=== PATIENT | male | born 1980 | race African-American/Black ===

== ENCOUNTER 2018-08-19 22:17 | Inpatient (IN) | payer MEDICAID ==
[~2018-08-19] VITALS: Ht 175.3 cm; Wt 192.8 kg
--- NOTE | 2018-08-19 22:20 | NUR ---
Dr. Rios at bedside for MSE.
[2018-08-19] MEDS ORDERED: IV NORMAL SALINE 1000 ML BAG IV ONE (22:30)
[2018-08-19] MEDS ORDERED: ASPIRIN 325 MG TABLET PO ONE (22:30)
[2018-08-19] MEDS ORDERED: NITROGLYCERIN 0.4 MG/TAB BOTTLE SL ONE ×2 (22:30→22:43)
--- NOTE | 2018-08-19 22:40 | NUR ---
Xray at bedside.
[2018-08-19] MEDS ORDERED: ASPIRIN 325 MG TABLET ONE (22:42)
--- NOTE | 2018-08-19 22:50 | NUR ---
Pt states relief from chestpain after 1st nitro dose.
[2018-08-19 22:53] LABS: BASOPHILS % (AUTO) 0.3 % (0.0-2.0); EOSINOPHILS % (AUTO) 0.1 % (0.0-7.0); HEMATOCRIT 46.1 % (36.7-47.1); HEMOGLOBIN 14.1 g/dL (12.5-16.3); LYMPHOCYTES # (AUTO) 1.5 K/uL (20.0-40.0); LYMPHOCYTES % (AUTO) 8.6 % (20.5-51.5); MEAN CORPUSCULAR HEMOGLOBIN 29.9 uug (23.8-33.4); MEAN CORPUSCULAR HGB CONC 31 g/dL (32.5-36.3); MEAN CORPUSCULAR VOLUME 97.6 fL (73.0-96.2); MONOCYTES # (AUTO) 1.1 K/uL (2.0-10.0); PLATELET COUNT (AUTO) 391 K/uL (152-348); RED BLOOD CELL COUNT(AUTO) 4.73 MIL/uL (4.06-5.63); WHITE BLOOD COUNT (AUTO) 17.6 K/uL (3.6-10.2)
[2018-08-19 23:11] LABS: BILIRUBIN,DIRECT 0.3 mg/dL (0.0-0.2); BILIRUBIN,TOTAL 0.7 mg/dL (0.2-1.0); CREATININE 1.8 mg/dL (0.6-1.3); POTASSIUM 5.5 mmol/L (3.5-5.1); TOTAL PROTEIN, SERUM 10.6 g/dL (6.4-8.2)
[2018-08-19] MEDS ORDERED: INSULIN REGULAR, HUMAN 300 UNIT/3 ML VIAL ONE ×2 (23:26→23:28)
[2018-08-19] MEDS ORDERED: INSULIN REGULAR, HUMAN 300 UNIT/3 ML VIAL IV ONE (23:30)
[2018-08-19] MEDS ORDERED: INSULIN REGULAR, HUMAN 100 UNITS in IV NORMAL SALINE 100 ML IV ONE ×2 (23:30)
[2018-08-20] VITALS (23 sets, daily range): BP systolic 103–165; BP diastolic 49–102
--- NOTE | 2018-08-20 00:12 | NUR ---
Dr. Rios on panel call with Jaguar Zimmerman NP. Pt accepted for admission to CCU, diagnosis hyperglycemia.
[2018-08-20] MEDS ORDERED: IV NORMAL SALINE 1000 ML BAG IV ONE (00:15)
--- NOTE | 2018-08-20 00:23 | NUR ---
Report given to [facility] CCU.
[2018-08-20] MEDS ORDERED: ONDANSETRON 4 MG/2 ML VIAL IV PRN (00:45)
[2018-08-20] MEDS ORDERED: Z GUARD REMEDY PASTE 57 GM TUBE TOP PRN (00:45)
[2018-08-20] MEDS ORDERED: ACETAMINOPHEN 325 MG TABLET PO PRN (00:45)
[2018-08-20] MEDS ORDERED: HYDROCODONE/APAP 5-325MG TABLET PO PRN (00:45)
[2018-08-20] MEDS ORDERED: MORPHINE SULFATE 2 MG/1 ML DISP.SYRIN IV PRN (00:45)
--- NOTE | 2018-08-20 01:00 | NUR ---
IV insulin drip to continue infusing in CCU floor, endorsed to RN.
--- NOTE | 2018-08-20 01:20 | NUR ---
Pt received from Bonifacio GAMEZ in ER, pt is a/o x4, denies any CP or discomfort, c/o being very fatiqued and dehydrate. Accu check reads >600 at this time, Valerio HERNANDEZ made aware, state to continue w/ current rate and follow protocal. Insulin gtt protocal faxed to Pharmacy
--- NOTE | 2018-08-20 01:30 | NUR ---
Pt on Carb consistant diet, c/o being very thirsty, ice water given, pt voiding lg amts of cl yellow urine
[2018-08-20] MEDS: ENOXAPARIN SODIUM 40 MG/0.4 ML DISP.SYRIN SQ SCH ×2 (01:50→20:01)
[2018-08-20] MEDS: INSULIN REGULAR, HUMAN 100 UNIT in IV NORMAL SALINE 99 ML IV PRN ×10 (02:09→16:13)
[2018-08-20] MEDS ORDERED: BLOOD SUGAR DIAGNOSTIC 1 EACH STRIP VI SCH (04:00)
--- NOTE | 2018-08-20 04:00 | NUR ---
Continue on accu check q1hr w/ insulin gtt, following algorithym 1. Pt relaxing, taking fluids po, voiding per urinal w/o diff.
[2018-08-20] MEDS: IV NS 1000 ML 1,000 ML IV PRN ×3 (05:35→18:36)
--- NOTE | 2018-08-20 05:37 | NUR ---
NS 1000ml hung at this time due to ER sending up 3000ml NS to bolus.
[2018-08-20 05:39] LABS: *BILIRUBIN,URIN NEGATIVE (NEGATIVE); *CLARITY,URINE CLEAR (CLEAR); *KETONES,URINE 4+ (NEGATIVE); *UROBILINOGEN,URINE 0.2 E.U./dl (NORMAL); LEUKOCYTE ESTERASE ,URINE NEGATIVE (NEGATIVE); NITRITE, URINE NEGATIVE (NEGATIVE); UGLUCOSE 2+ (NEGATIVE)
[2018-08-20 05:40] LABS: *BLOOD, URINE TRACE (NEGATIVE); *COLOR,URINE STRAW (YELLOW)
[2018-08-20] MEDS ORDERED: INSULIN REGULAR, HUMAN 300 UNIT/3 ML VIAL ONE (05:40)
[2018-08-20 05:57] LABS: BACTERIA,URINE NONE SEEN /HPF (NONE SEEN); COARSE GRANULAR CASTS,URINE 0-3 /LPF; RED BLOOD CELL CASTS,URINE 0-3 /LPF (NONE SEEN); SQUAMOUS EPITHELIAL CELL,UR FEW /HPF (NONE SEEN); WBC,URINE 0-3 /HPF (0-3)
[2018-08-20 06:42] LABS: BASOPHILS # (AUTO) 0.1 K/uL (0.0-8.0); BASOPHILS % (AUTO) 0.6 % (0.0-2.0); EOSINOPHILS % (AUTO) 0.1 % (0.0-7.0); HEMATOCRIT 40.2 % (36.7-47.1); HEMOGLOBIN 13.2 g/dL (12.5-16.3); LYMPHOCYTES # (AUTO) 2.4 K/uL (20.0-40.0); LYMPHOCYTES % (AUTO) 13.7 % (20.5-51.5); MEAN CORPUSCULAR HEMOGLOBIN 30.2 uug (23.8-33.4); MEAN CORPUSCULAR HGB CONC 33 g/dL (32.5-36.3); MONOCYTES # (AUTO) 1.7 K/uL (2.0-10.0); MONOCYTES % (AUTO) 9.7 % (0.0-11.0); NEUTROPHILS # (AUTO) 13.3 K/uL (1.8-8.9); NEUTROPHILS % (AUTO) 75.9 % (38.5-71.5); PLATELET COUNT (AUTO) 348 K/uL (152-348); RED BLOOD CELL COUNT(AUTO) 4.37 MIL/uL (4.06-5.63); WHITE BLOOD COUNT (AUTO) 17.5 K/uL (3.6-10.2)
[2018-08-20 06:53] LABS: CREATININE 1.4 mg/dL (0.6-1.3); MAGNESIUM 2.7 mg/dL (1.8-2.4); PHOSPHOROUS 2.7 mg/dL (2.5-4.9); POTASSIUM 4.3 mmol/L (3.5-5.1)
[2018-08-20] MEDS ORDERED: MORPHINE SULFATE 4 MG/1 ML DISP.SYRIN IV PRN (07:30)
--- NOTE | 2018-08-20 07:30 | NUR ---
Received pt. in bed resting, AAOX4. Vitals signs stable no complains of pain. Currently on insulin drip running at 6 units/hr. On room air saturation within desire limits.
[2018-08-20 07:38] LABS: THYROID STIMULATING HORMONE 0.975 mIU/mL (0.358-3.740)
[2018-08-20] MEDS: PANTOPRAZOLE SODIUM 40 MG TABLET.DR PO SCH (07:39)
[2018-08-20] MEDS: BLOOD SUGAR DIAGNOSTIC 1 EACH STRIP VI SCH ×15 (08:04→23:49)
--- NOTE | 2018-08-20 10:20 | NUR ---
Attending physician Dr. Kaylee Shaw in the unit to examine patient; full report given orders received and carried. See order hx.
[2018-08-20] MEDS ORDERED: hydrALAZINE HCL 25 MG TABLET PO PRN (10:30)
[2018-08-20] MEDS: BENZOCAINE/MENTH/CETYLPYRD LOZENGE MM PRN ×5 (10:49→21:51)
[2018-08-20 13:16] LABS: BILIRUBIN,DIRECT 0.2 mg/dL (0.0-0.2); BILIRUBIN,TOTAL 0.5 mg/dL (0.2-1.0); TOTAL PROTEIN, SERUM 9.5 g/dL (6.4-8.2)
--- NOTE | 2018-08-20 15:38 | NUR ---
Referred by RN for diabetic education. Discussed etiology of diabetes, management and care. Encouraged blood glucose monitoring after discharge. Printed materials also provided. Patient appeared to understand education and was receptive. Adherence after discharge anticipated however further dietary education indicated. Addendum: 08/20/18 at [address] Amended: Links added.
--- NOTE | 2018-08-20 19:00 | NUR ---
Received patient in bed. Patient is alert and oriented x4. patient is on an insulin drip with accu checks qhr. patient IV sites are intact and patent. Patient is able to verbalize needs and needs are being met. Will continue to monitor patient closely.
[2018-08-20] MEDS: SIMVASTATIN 20 MG TABLET PO SCH (20:00)
--- NOTE | 2018-08-20 20:00 | NUR ---
[id number]=[id number]. Patient AAO; remains on Insulin drip @ 5units/H. Insulin drip protocol discussed with Pharmacist John (Transition from IV Insulin to SC Insulin). Call placed to [facility]; Valeria Dumontwy women's apparel salesperson. Addendum: 08/20/18 at 2035 by BRENDA TAVERAS RN Amended: Links added.
--- NOTE | 2018-08-20 20:15 | NUR ---
[facility] [id number] and Insulin drip @ 5 units/H. Orders received. Pharmacist notified of new orders. Addendum: 08/20/18 at 2028 by BRENDA TAVERAS RN Amended: Links added. Addendum: 08/20/18 at 2035 by BRENDA TAVERAS RN Amended: Links added.
[2018-08-20] MEDS ORDERED: DEXTROSE 50% 50 ML DISP.SYRIN IV PRN (20:30)
[2018-08-20] MEDS: INSULIN REGULAR, HUMAN 300 UNIT/3 ML VIAL SQ PRN ×2 (20:49→23:52)
--- NOTE | 2018-08-20 23:12 | NUR ---
Spoke to sister, Dustin Parmar, and she stated she will like to be contacted by the physician to receive a update about her brother. She can be reached at [phone]. Will endorse to day shift nurse.
[2018-08-21] VITALS (16 sets, daily range): BP systolic 118–176; BP diastolic 59–94
[2018-08-21] MEDS: IV NS 1000 ML 1,000 ML IV PRN ×2 (01:01→07:53)
[2018-08-21] MEDS: BENZOCAINE/MENTH/CETYLPYRD LOZENGE MM PRN ×7 (01:31→23:57)
[2018-08-21] MEDS: BLOOD SUGAR DIAGNOSTIC 1 EACH STRIP VI SCH ×6 (04:07→19:26)
[2018-08-21] MEDS: INSULIN REGULAR, HUMAN 300 UNIT/3 ML VIAL SQ PRN ×4 (04:09→20:55)
[2018-08-21 05:11] LABS: CREATININE 1.1 mg/dL (0.6-1.3); MAGNESIUM 1.9 mg/dL (1.8-2.4); PHOSPHOROUS 2.3 mg/dL (2.5-4.9); POTASSIUM 3.9 mmol/L (3.5-5.1)
[2018-08-21 05:18] LABS: BASOPHILS # (AUTO) 0.1 K/uL (0.0-8.0); BASOPHILS % (AUTO) 1.5 % (0.0-2.0); EOSINOPHILS # (AUTO) 0.1 K/uL (0.0-0.7); HEMATOCRIT 37.4 % (36.7-47.1); HEMOGLOBIN 12.4 g/dL (12.5-16.3); LYMPHOCYTES # (AUTO) 2.5 K/uL (20.0-40.0); LYMPHOCYTES % (AUTO) 26.8 % (20.5-51.5); MEAN CORPUSCULAR HEMOGLOBIN 30.8 uug (23.8-33.4); MEAN CORPUSCULAR HGB CONC 33 g/dL (32.5-36.3); MEAN CORPUSCULAR VOLUME 93.2 fL (73.0-96.2); MONOCYTES # (AUTO) 0.8 K/uL (2.0-10.0); MONOCYTES % (AUTO) 8.7 % (0.0-11.0); NEUTROPHILS # (AUTO) 5.8 K/uL (1.8-8.9); PLATELET COUNT (AUTO) 275 K/uL (152-348); RED BLOOD CELL COUNT(AUTO) 4.01 MIL/uL (4.06-5.63); WHITE BLOOD COUNT (AUTO) 9.4 K/uL (3.6-10.2)
[2018-08-21] MEDS: PANTOPRAZOLE SODIUM 40 MG TABLET.DR PO SCH (06:00)
--- NOTE | 2018-08-21 06:30 | NUR ---
called [facility] for on-call physician about patient critical lab value - Blood glucose 400. Waiting for call back.
--- NOTE | 2018-08-21 06:34 | NUR ---
end of shift note: Patient is alert and oriented x4. IV lines are intact and patent. Patient able to verbalize needs and needs have been met. patient able to ambulate to restroom and was able to have a bowel movement. Patient had a elevated blood pressure at 02:40 of 176/69. Patient was given apresoline 25 mg PO. Blood pressure has decreased and return to baseline. patient complains of dry mouth, administration of Cepacol Q2hrs. patient was transitioned from insulin drip to subcutaneous injection with moderate sliding scale at 21:50. patient latest BS was 400, on-call physician has been called and still waiting for call back. Will continue to monitor closely and endorse plan of care to oncoming shift nurse.
--- NOTE | 2018-08-21 07:20 | NUR ---
received patient sleeping as reported blood sugar per lab report in the 400. pt. on Acu-check Q4h. and henna guerrero this morning. At this time a call to Dr. Page orders received and carried. Addendum: 08/21/18 at 0739 by ELVIS ANNE RN orders to give 30 units of lantus daily first dose now scheduled for 2099. and change SS to aggressive coverage, until seen by her.
[2018-08-21] MEDS ORDERED: INSULIN GLARGINE,HUM 300 UNITS/3 ML CARTRIDGE SQ SCH (07:30)
[2018-08-21] MEDS ORDERED: INSULIN REGULAR, HUMAN 300 UNITS/3 ML VIAL SQ PRN (07:30)
[2018-08-21] MEDS ORDERED: DEXTROSE 50% 50 ML DISP.SYRIN IV PRN ×2 (07:30)
[2018-08-21] MEDS ORDERED: INSULIN REGULAR, HUMAN 300 UNIT/3 ML VIAL SQ PRN (07:30)
[2018-08-21] MEDS ORDERED: INSULIN GLARGINE,HUM 300 UNITS/3 ML CARTRIDGE SQ ONE (07:45)
[2018-08-21] MEDS ORDERED: BLOOD SUGAR DIAGNOSTIC 1 EACH STRIP VI SCH (08:00)
--- NOTE | 2018-08-21 11:00 | NUR ---
Patient seen and examine by Dr. Conde [facility]
--- NOTE | 2018-08-21 11:20 | NUR ---
Telephone report given to charge Juan Sam. Patient will going to room 321. Patient AAOX4. No c/of pain. Peripheral IV lines patent.
--- NOTE | 2018-08-21 11:45 | NUR ---
A call to attending physician for glucose of 501 informed that pt. was covered with 20unit/per SS. no new orders received.
--- NOTE | 2018-08-21 12:27 | NUR ---
Spoke with attending physician and orders to dcd IVF upon transferring.
--- NOTE | 2018-08-21 12:55 | NUR ---
received patient from ccu with DX of Hyperglycemia, no SOB noted and no c/o pain at this time. iv on the left hand intact and patent. patient is ambulatory, patient is diabetic skin is intact alert and oriented x4 with no known allergies full code. will continue treatment plan.
[2018-08-21] MEDS ORDERED: NEUTRA PHOS PACKET PO ONE (16:00)
--- NOTE | 2018-08-21 16:58 | NUR ---
MADE AWARE OF CT=204 BY BEDSIDE RN. 20 UNITS OF HUMALOG GIVEN PER ORDERS. DR HADLEY MADE AWARE WITH ORDERS TO RE CHECK SUGAR HS AND INCREASE MORNING LANTUS DOSE TO 40 UNITS. BEDSIDE RN MADE AWARE
--- NOTE | 2018-08-21 18:46 | NUR ---
patient in bed with no SOB noted and no c/o pain at this time. Alert and oriented x4 , able to make needs known, IV on the left hand intact and patent. patient is ambulatory. will continue treatment plan.
[2018-08-21] MEDS: SIMVASTATIN 20 MG TABLET PO SCH (20:52)
[2018-08-21] MEDS: ENOXAPARIN SODIUM 40 MG/0.4 ML DISP.SYRIN SQ SCH (20:55)
--- NOTE | 2018-08-21 22:00 | NUR ---
Received report of patient BS trending high. Checked BS at 1925= 474. MD notified. Ordered stat random glucose. Received glucose critical lab value of 523 at 2025. MD notified per protocol. Administered 20 units per sliding scale. Patient currently awake, alert and oriented in bed. Asymptomatic. No s/s of acute distress. IV intact and patent. Call light within reach. All needs met. Will continue to monitor throughout shift.
[2018-08-22 03:28] VITALS: BP 162/96
--- NOTE | 2018-08-22 03:50 | NUR ---
Patient complaining of discomfort/pain in the mouth area of 10/10 as well as a sore throat. Cepacol PRN q2hr for sore throat administered x3 throughout the night. PRN Morphine administered due to pain level. Offered patient to gargle cup of salt water. Patient verbalizes discomfort/pain relief of 3/10. Will continue to monitor.
[2018-08-22] MEDS: BENZOCAINE/MENTH/CETYLPYRD LOZENGE MM PRN ×4 (03:57→17:24)
[2018-08-22 05:30] VITALS: BP 145/79
[2018-08-22] MEDS: PANTOPRAZOLE SODIUM 40 MG TABLET.DR PO SCH (06:18)
[2018-08-22] MEDS: BLOOD SUGAR DIAGNOSTIC 1 EACH STRIP VI SCH ×4 (06:47→21:22)
[2018-08-22 06:56] LABS: BASOPHILS % (AUTO) 0.8 % (0.0-2.0); EOSINOPHILS # (AUTO) 0.1 K/uL (0.0-0.7); EOSINOPHILS % (AUTO) 2.4 % (0.0-7.0); HEMATOCRIT 36.9 % (36.7-47.1); HEMOGLOBIN 12.3 g/dL (12.5-16.3); LYMPHOCYTES % (AUTO) 32.2 % (20.5-51.5); MEAN CORPUSCULAR HEMOGLOBIN 30.7 uug (23.8-33.4); MEAN CORPUSCULAR HGB CONC 33 g/dL (32.5-36.3); MEAN CORPUSCULAR VOLUME 91.8 fL (73.0-96.2); MONOCYTES # (AUTO) 0.8 K/uL (2.0-10.0); MONOCYTES % (AUTO) 12.8 % (0.0-11.0); NEUTROPHILS # (AUTO) 3.2 K/uL (1.8-8.9); NEUTROPHILS % (AUTO) 51.8 % (38.5-71.5); PLATELET COUNT (AUTO) 243 K/uL (152-348); RED BLOOD CELL COUNT(AUTO) 4.02 MIL/uL (4.06-5.63); WHITE BLOOD COUNT (AUTO) 6.2 K/uL (3.6-10.2)
--- NOTE | 2018-08-22 07:10 | NUR ---
RECEIVED PATIENT ON BED AWAKE, AAOX4 NO ACUTE DISTRESS NOTED. IV ACCESS ON LFA #20 INTACT AND PATENT. PATIENT IS HYPERGLYCEMIC BUT ASYMPTOMATIC. RECENT BLOOD SUGAR 379 WILL NEED INSULIN COVERAGE BEFORE BREAKFAST. MONITOR BLOOD SUGAR AND S/S OF HYPERGLYCEMIA CLOSELY. COMPLAINS OF "RAW AND SORE THROAT" MANAGED BY CEPACOL Q2HRS PRN. COMFORT MEASURES PROVIDED. WILL CONTINUE TO MONITOR CLOSELY.
[2018-08-22 07:12] LABS: MAGNESIUM 2.3 mg/dL (1.8-2.4)
--- NOTE | 2018-08-22 07:19 | NUR ---
Patient currently resting in bed. No change in status. VSS. No acute distress noted. All needs met. Continue plan of care. Endorsed
[2018-08-22] MEDS: INSULIN REGULAR, HUMAN 300 UNIT/3 ML VIAL SQ PRN ×4 (07:43→21:32)
--- NOTE | 2018-08-22 08:00 | NUR ---
RECHECKED BLOOD GLUCOSE LEVELS, 378, PATIENT IS STABLE .WILL CONTINUE TO MONITOR CLOSELY.
[2018-08-22] MEDS ORDERED: INSULIN GLARGINE,HUM 300 UNITS/3 ML CARTRIDGE SQ SCH ×2 (09:00)
--- NOTE | 2018-08-22 11:50 | NUR ---
PATIENT NOTED WITH BLOOD SUGAR OF 488, DR. HADLEY MADE AWARE, ADMINISTERED 20 UNITS OF REGULAR INSULIN. WILL CONTINUE TO MONITOR CLOSELY.
[2018-08-22 12:18] VITALS: BP 153/68
[2018-08-22] MEDS: LISINOPRIL 10 MG TABLET PO SCH (14:17)
[2018-08-22 16:13] VITALS: BP 139/88
--- NOTE | 2018-08-22 20:00 | NUR ---
PATIENT RECEIVED AWAKE AND ALERT IN BED. NO COMPLAINTS OF PAIN OR ACUTE DISTRESS VERBALIZED. VS FROM PREVIOUS SHIFT ARE WNL AND PATIENT IS STABLE. ALL SAFETY AND FALL PRECAUTION MEASURES ARE IN PLACE. BED IS IN LOWEST POSITION WITH BRAKE APPLIED. 2 SIDE RAILS ARE UP AND IN LOCKED POSITION. CALL LIGHT AND PERSONAL ITEMS ARE WITHIN REACH AT ALL TIMES. WILL CONTINUE TO MONITOR.
[2018-08-22 20:04] VITALS: BP 133/76
[2018-08-22] MEDS: ENOXAPARIN SODIUM 40 MG/0.4 ML DISP.SYRIN SQ SCH (21:09)
[2018-08-22] MEDS: SIMVASTATIN 20 MG TABLET PO SCH (21:09)
[2018-08-22] MEDS: TEMAZEPAM 15 MG CAPSULE PO PRN (21:30)
--- NOTE | 2018-08-23 05:22 | NUR ---
PATIENT SLEPT INTERMITTENTLY THROUGHOUT NIGHT WITHOUT ANY COMPLAINTS OF PAIN OR ACUTE DISTRESS. ALL PRESCRIBED MEDICATIONS PROVIDED ORDERED AND TOLERATED WELL. ALL NURSING NEEDS MET PROMPTLY. SAFETY AND FALL PRECAUTIONS REMAIN IN PLACE. BED IN LOWEST POSITION WITH BRAKE APPLIED. 2 SIDE RAILS UP AND IN LOCKED POSITION. CALL LIGHT AND PERSONAL ITEMS ARE WITHIN REACH AT ALL TIMES. WILL PROVIDE REPORT TO ONCOMING SHIFT.
[2018-08-23 05:47] VITALS: BP 119/59
[2018-08-23] MEDS: BENZOCAINE/MENTH/CETYLPYRD LOZENGE MM PRN (05:59)
[2018-08-23] MEDS: PANTOPRAZOLE SODIUM 40 MG TABLET.DR PO SCH (06:00)
[2018-08-23] MEDS: BLOOD SUGAR DIAGNOSTIC 1 EACH STRIP VI SCH ×5 (06:06→20:52)
[2018-08-23 06:50] LABS: CARBON DIOXIDE 27 mmol/L (21-32); CHLORIDE 101 mmol/L (98-107); CREATININE 0.7 mg/dL (0.6-1.3); MAGNESIUM 2.2 mg/dL (1.8-2.4); PHOSPHOROUS 4.1 mg/dL (2.5-4.9); POTASSIUM 4.1 mmol/L (3.5-5.1); UREA NITROGEN, BLOOD 12 mg/dL (7-18)
[2018-08-23 06:54] LABS: GLUCOSE 389 mg/dL (74-106)
--- NOTE | 2018-08-23 07:15 | NUR ---
PATIENT RECEIVED IN BED, AAOX4 NO ACUTE DISTRESS NOTED. IV ACCESS ON LEFT FOREARM #20 SALINE LOCKED INTACT AND PATENT. VITAL SIGNS STABLE BLOOD SUGAR THIS AM, 368, WILL BE COVERED WITH 20 UNITS OF REGULAR INSULIN. NO COMPLAINTS OF PAIN/DISCOMFORT AT THIS TIME. CALL LIGHT WITHIN REACH. WILL CONTINUE TO MONITOR CLOSELY.
[2018-08-23] MEDS: INSULIN REGULAR, HUMAN 300 UNIT/3 ML VIAL SQ PRN ×3 (07:35→17:24)
[2018-08-23 07:59] LABS: BASOPHILS % (AUTO) 0.7 % (0.0-2.0); EOSINOPHILS # (AUTO) 0.2 K/uL (0.0-0.7); EOSINOPHILS % (AUTO) 3.9 % (0.0-7.0); HEMATOCRIT 37.8 % (36.7-47.1); HEMOGLOBIN 12.5 g/dL (12.5-16.3); LYMPHOCYTES % (AUTO) 32.4 % (20.5-51.5); MEAN CORPUSCULAR HEMOGLOBIN 30.3 uug (23.8-33.4); MEAN CORPUSCULAR HGB CONC 33 g/dL (32.5-36.3); MEAN CORPUSCULAR VOLUME 91.9 fL (73.0-96.2); MONOCYTES # (AUTO) 0.8 K/uL (2.0-10.0); MONOCYTES % (AUTO) 12.4 % (0.0-11.0); NEUTROPHILS # (AUTO) 3.1 K/uL (1.8-8.9); NEUTROPHILS % (AUTO) 50.6 % (38.5-71.5); PLATELET COUNT (AUTO) 249 K/uL (152-348); RED BLOOD CELL COUNT(AUTO) 4.11 MIL/uL (4.06-5.63); WHITE BLOOD COUNT (AUTO) 6.1 K/uL (3.6-10.2)
[2018-08-23] MEDS: LISINOPRIL 10 MG TABLET PO SCH (08:15)
[2018-08-23] MEDS: INSULIN GLARGINE,HUM 300 UNITS/3 ML CARTRIDGE SQ SCH (09:15)
[2018-08-23 10:51] VITALS: BP 144/78
--- NOTE | 2018-08-23 11:53 | NUR ---
PATIENT NOTED WITH BLOOD SUGAR OF 464, ADMINISTERED 20 UNITS OF REGULAR INSULIN PER SLIDING SCALE AND NOTIFIED DR. LEONIE MITCHELL. NNO. WILL CONTINUE TO MONITOR CLOSELY.
[2018-08-23 15:20] VITALS: BP 133/78
--- NOTE | 2018-08-23 17:01 | NUR ---
Received consult for diabetic education. Seen by me in CCU for initial education. Discussed food and carbohydrate management at length. Printed materials also provided. 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 Adherence is expected with adequate medical support after discharge. Currently, he does not have a regular MD. Weight loss was also emphasized for good glucose control. Will remain available as needed for follow-up questions/education. Addendum: 08/23/18 at [address] Amended: Links added.
[2018-08-23 19:14] VITALS: BP 117/69
--- NOTE | 2018-08-23 20:00 | NUR ---
RECEIVED PATIENT AWAKE IN BED. A/O X4. DENIES PAIN OR DISCOMFORT. NO RESP. DISTRESS NOTED. VS WNL. H/L INTACT AND PATENT. CALL LIGHT IN REACH. ALL NEEDS ATTENDED. WILL CONTINUE TO MONITOR AND ASSESS.
--- NOTE | 2018-08-23 20:15 | NUR ---
PATIENTS BLOOD SUGAR CHECKED AND RECEIVED 421. CALLED OUT TO LAB FOR STAT DRAW. MICE RAISER NOTIFIED. WILL CONTINUE TO MONITOR AND ASSESS.
[2018-08-23] MEDS: SIMVASTATIN 20 MG TABLET PO SCH (20:39)
[2018-08-23] MEDS: ENOXAPARIN SODIUM 40 MG/0.4 ML DISP.SYRIN SQ SCH (20:49)
--- NOTE | 2018-08-23 20:55 | NUR ---
RECEIVED STAT GLUCOSE LAB DRAW 466. PATIENT COVERED WITH 10 UNITS OF INSULIN ORDERED.
--- NOTE | 2018-08-23 21:30 | NUR ---
RECHECKED PATIENTS BS AFTER PATIENT RECEIVING 10 UNITS. RECEIVED BS OF 432. CALLED OUT TO DAVID GONZALEZ FOR FURTHER ORDERS. WILL CONTINUE TO MONITOR AND ASSESS.
[2018-08-23] MEDS ORDERED: INSULIN GLARGINE,HUM 300 UNITS/3 ML CARTRIDGE SQ SCH (21:45)
--- NOTE | 2018-08-23 21:45 | NUR ---
PATIENT GIVEN LANTUS 20 UNITS SQ PER DAVID GONZALEZ. AND TO RECHECK BLOOD SUGAR IN AM. WILL CONTINUE TO MONITOR CLOSELY FOR S/S OF HYPOGLYCEMIA. ALL NEEDS ATTENDED.
[2018-08-24 04:36] VITALS: BP 150/88
[2018-08-24 05:30] LABS: BASOPHILS % (AUTO) 0.8 % (0.0-2.0); EOSINOPHILS # (AUTO) 0.2 K/uL (0.0-0.7); EOSINOPHILS % (AUTO) 3.9 % (0.0-7.0); HEMATOCRIT 38.8 % (36.7-47.1); LYMPHOCYTES # (AUTO) 1.6 K/uL (20.0-40.0); LYMPHOCYTES % (AUTO) 28.9 % (20.5-51.5); MEAN CORPUSCULAR HEMOGLOBIN 30.9 uug (23.8-33.4); MEAN CORPUSCULAR HGB CONC 34 g/dL (32.5-36.3); MEAN CORPUSCULAR VOLUME 91.8 fL (73.0-96.2); MONOCYTES # (AUTO) 0.6 K/uL (2.0-10.0); MONOCYTES % (AUTO) 10.3 % (0.0-11.0); NEUTROPHILS # (AUTO) 3.2 K/uL (1.8-8.9); NEUTROPHILS % (AUTO) 56.1 % (38.5-71.5); PLATELET COUNT (AUTO) 241 K/uL (152-348); RED BLOOD CELL COUNT(AUTO) 4.22 MIL/uL (4.06-5.63); WHITE BLOOD COUNT (AUTO) 5.7 K/uL (3.6-10.2)
--- NOTE | 2018-08-24 05:39 | NUR ---
PATIENT AWAKE IN BED. SLEPT AT INTERVALS. DENIES PAIN OR DISCOMFORT. NO RESP. DISTRESS NOTED. VSS. CALL LIGHT IN REACH. ALL NEEDS ATTENDED. WILL CONTINUE TO MONITOR AND ASSESS.
[2018-08-24] MEDS: PANTOPRAZOLE SODIUM 40 MG TABLET.DR PO SCH (06:05)
[2018-08-24] MEDS: BLOOD SUGAR DIAGNOSTIC 1 EACH STRIP VI SCH ×4 (06:28→20:39)
[2018-08-24 07:00] LABS: CREATININE 0.9 mg/dL (0.6-1.3); MAGNESIUM 1.9 mg/dL (1.8-2.4); PHOSPHOROUS 3.7 mg/dL (2.5-4.9); POTASSIUM 3.8 mmol/L (3.5-5.1)
--- NOTE | 2018-08-24 07:00 | NUR ---
RECEIVED CALL FROM LAB THAT AM GLUCOSE IS 407. NOTIFIED CIVIL TRANSPORTATION ENGINEER AND MD NOTIFIED. ALL NEEDS ATTENDED. WILL CONTINUE TO MONITOR AND ASSESS.
[2018-08-24] MEDS: INSULIN REGULAR, HUMAN 300 UNIT/3 ML VIAL SQ PRN ×2 (07:44→11:39)
--- NOTE | 2018-08-24 07:58 | NUR ---
PATIENT IS AWAKE ALERT AND ORIENTED DENIES PAIN OR DISCOMFORTS AT THIS TIME BLOOD SUGAR IS ELEVATED WITH NO S/S OF HYPERGLYCEMIC REACTIONS AT THIS TIME INSULIN GIVEN PER SLIDING SCALE CALL LIGHTS AND PERSONAL BELONGINGS PLACED WITHIN EASY REACH WILL CONTINUE TO OBSERVE PATIENT.
[2018-08-24] MEDS: LISINOPRIL 10 MG TABLET PO SCH (08:17)
[2018-08-24] MEDS: BENZOCAINE/MENTH/CETYLPYRD LOZENGE MM PRN (08:17)
[2018-08-24] MEDS: INSULIN GLARGINE,HUM 300 UNITS/3 ML CARTRIDGE SQ SCH (08:20)
--- NOTE | 2018-08-24 10:15 | NUR ---
AWAKE ALERT ORIENTED AND COMPLIANT WITH CARE AND MEDICATIONS DENIES PAIN OR DISCOMFORTS BUT WAS MEDICATED WITH LOZENGES STATED HAS SORE THROAT AND EFFECTIVE.
--- NOTE | 2018-08-24 11:35 | NUR ---
BLOOD SUGAR AT THIS TIME IS 391 MD IS IN THE ROOM AND STATED SHE WILL MAKE SOME CHANGES IN THE INSULIN ADMINISTRATION FOR THIS PATIENT STATED DID NOT WANT STAT LABS DRAWN EACH TIME IT HAS BEEN CONSISTENTLY HIGH.
[2018-08-24 11:53] VITALS: BP 135/70
[2018-08-24] MEDS: INSULIN REGULAR, HUMAN 300 UNIT/3 ML VIAL SQ SCH (16:15)
[2018-08-24 16:25] VITALS: BP 142/67
[2018-08-24] MEDS ORDERED: INSULIN LISPRO 300 UNIT/3 ML VIAL SQ SCH (16:30)
--- NOTE | 2018-08-24 16:30 | NUR ---
BLOOD SUGAR AT THIS TIME IS 417 AC INSULIN GIVEN ORDERED MD AWARE OF BLOOD SUGARS BEING SO HIGH MOST OF THE TIME STATED WANTS TO TRY AC INSULIN WITH THE HIGHER DOSES OF LANTUS AND WILL REEVALUATE STATED NO NEED FOR STAT BLOOD DRAWS EACH TIME BLOOD SUGAR IS HIGH BECAUSE IT HAS BEEN CONSISTENTLY HIGH.
--- NOTE | 2018-08-24 18:19 | NUR ---
RESTING DENIES DISCOMFORTS NO S/S OF HYPERGLYCEMIC REACTIONS AT THIS TIME WILL CONTINUE TO OBSERVE.
[2018-08-24 19:47] VITALS: BP 105/52
--- NOTE | 2018-08-24 19:53 | NUR ---
Received patient awake, alert and oriented lying in bed. Not in any form of distress. Noted with IV access on the left forearm to saline lock, intact. Noted per report and chart review, patient has elevated blood sugar, will continue to monitor.
[2018-08-24] MEDS: ENOXAPARIN SODIUM 40 MG/0.4 ML DISP.SYRIN SQ SCH (20:41)
[2018-08-24] MEDS: SIMVASTATIN 20 MG TABLET PO SCH (20:43)
[2018-08-24] MEDS ORDERED: INSULIN GLARGINE,HUM 300 UNITS/3 ML CARTRIDGE SQ SCH (21:00)
[2018-08-24] MEDS: INSULIN REGULAR, HUMAN 300 UNITS/3 ML VIAL SQ PRN (21:13)
[2018-08-24] MEDS ORDERED: DEXTROSE 50% 50 ML DISP.SYRIN IV PRN (21:15)
[2018-08-24] MEDS ORDERED: BLOOD SUGAR DIAGNOSTIC 1 EACH STRIP VI SCH (21:15)
--- NOTE | 2018-08-24 21:21 | NUR ---
Blood sugar still elevated at 393mg/dl, called Dr. Lambert as instructed for medication orders. Spoke with Dr. Lambert who ordered to start Moderate sliding scale for the patient on top of the scheduled Humulin R dose premeals.
[2018-08-25] MEDS: TEMAZEPAM 15 MG CAPSULE PO PRN (00:24)
[2018-08-25 04:40] VITALS: BP 150/89
[2018-08-25] MEDS: BENZOCAINE/MENTH/CETYLPYRD LOZENGE MM PRN (05:19)
--- NOTE | 2018-08-25 05:37 | NUR ---
Patient slept intermittently throughout the night. No complaints made. No distress noted. Still with IV access at left forearm, intact. Attended all needs. Ensured safety and comfort.
[2018-08-25] MEDS: PANTOPRAZOLE SODIUM 40 MG TABLET.DR PO SCH (06:01)
[2018-08-25 06:15] LABS: CARBON DIOXIDE 28 mmol/L (21-32); CHLORIDE 99 mmol/L (98-107); CREATININE 0.7 mg/dL (0.6-1.3); MAGNESIUM 1.8 mg/dL (1.8-2.4); PHOSPHOROUS 3.9 mg/dL (2.5-4.9); POTASSIUM 3.9 mmol/L (3.5-5.1); UREA NITROGEN, BLOOD 11 mg/dL (7-18)
[2018-08-25 06:28] LABS: BASOPHILS % (AUTO) 0.4 % (0.0-2.0); EOSINOPHILS # (AUTO) 0.2 K/uL (0.0-0.7); EOSINOPHILS % (AUTO) 3.9 % (0.0-7.0); HEMATOCRIT 37.6 % (36.7-47.1); HEMOGLOBIN 12.5 g/dL (12.5-16.3); LYMPHOCYTES # (AUTO) 1.8 K/uL (20.0-40.0); LYMPHOCYTES % (AUTO) 28.8 % (20.5-51.5); MEAN CORPUSCULAR HEMOGLOBIN 30.8 uug (23.8-33.4); MEAN CORPUSCULAR HGB CONC 33 g/dL (32.5-36.3); MEAN CORPUSCULAR VOLUME 92.9 fL (73.0-96.2); MONOCYTES # (AUTO) 0.8 K/uL (2.0-10.0); MONOCYTES % (AUTO) 12.7 % (0.0-11.0); NEUTROPHILS # (AUTO) 3.4 K/uL (1.8-8.9); NEUTROPHILS % (AUTO) 54.2 % (38.5-71.5); PLATELET COUNT (AUTO) 262 K/uL (152-348); RED BLOOD CELL COUNT(AUTO) 4.05 MIL/uL (4.06-5.63); WHITE BLOOD COUNT (AUTO) 6.2 K/uL (3.6-10.2)
[2018-08-25] MEDS: BLOOD SUGAR DIAGNOSTIC 1 EACH STRIP VI SCH ×4 (06:33→20:37)
[2018-08-25] MEDS: INSULIN REGULAR, HUMAN 300 UNIT/3 ML VIAL SQ SCH ×3 (06:46→16:23)
[2018-08-25] MEDS: INSULIN REGULAR, HUMAN 300 UNIT/3 ML VIAL SQ PRN ×3 (06:48→16:26)
[2018-08-25 06:51] LABS: GLUCOSE 389 mg/dL (74-106)
--- NOTE | 2018-08-25 06:53 | NUR ---
Blood sugar still elevated, 390mg/dl, sliding scale insulin and scheduled insulin given as ordered.
--- NOTE | 2018-08-25 07:31 | NUR ---
PATIENT IS AWAKE ALERT AND ORIENTED DENIES PAIN OR DISCOMFORTS AT THIS TIME REMAIN ON ROOM AIR WITH NO S/S OF HYPERGLYCEMIC REACTIONS AT THIS TIME.CALL LIGHTS AND PERSONAL BELONGINGS PLACED WITHIN EASY REACH MADE COMFORTABLE AND WILL CONTINUE TO OBSERVE.
[2018-08-25] MEDS: LISINOPRIL 10 MG TABLET PO SCH (08:24)
[2018-08-25] MEDS: INSULIN GLARGINE,HUM 300 UNITS/3 ML CARTRIDGE SQ SCH ×2 (08:29→20:39)
--- NOTE | 2018-08-25 08:34 | NUR ---
PATIENT SEEN AND EXAMINED BY DR REINOSO WITH NEW ORDERS AND NOTED.
[2018-08-25 11:12] VITALS: BP 152/88
[2018-08-25 15:09] VITALS: BP 154/91
--- NOTE | 2018-08-25 17:00 | NUR ---
BLOOD SUGAR CONTINUES TO BE UP DESPITE INSULIN BEING GIVEN ORDERED STAT LAB DRAWS NOT DONE MD AWARE AND PATIENTS BLOOD SUGAR IS OVER 400 MOST OF THE TIME NO S/S OF HYPERGLYCEMIC REACTIONS AT THIS TIME WILL CONTINUE TO OBSERVE AND PROVIDE COMFORT.
--- NOTE | 2018-08-25 17:55 | NUR ---
ASSISTED WITH SHOWERING IN THE SHOWER ROOM AND TOLERATED WELL AND BACK TO BED.
--- NOTE | 2018-08-25 19:42 | NUR ---
Received patient awake, alert and oriented lying in bed. Patient is ambulatory. Not in any form of distress. Noted with IV access on the left forearm to saline lock, intact. Still with elevated blood sugar during the day, will continue to monitor. No complaints at the moment.
[2018-08-25 20:05] VITALS: BP 132/70
[2018-08-25] MEDS: INSULIN REGULAR, HUMAN 300 UNITS/3 ML VIAL SQ PRN (20:40)
[2018-08-25] MEDS: ENOXAPARIN SODIUM 40 MG/0.4 ML DISP.SYRIN SQ SCH (20:41)
[2018-08-25] MEDS: SIMVASTATIN 20 MG TABLET PO SCH (20:42)
[2018-08-26 06:19] VITALS: BP 124/55
[2018-08-26] MEDS: PANTOPRAZOLE SODIUM 40 MG TABLET.DR PO SCH (06:23)
[2018-08-26] MEDS: BLOOD SUGAR DIAGNOSTIC 1 EACH STRIP VI SCH ×4 (06:41→21:26)
[2018-08-26 06:42] LABS: BASOPHILS % (AUTO) 0.6 % (0.0-2.0); EOSINOPHILS # (AUTO) 0.2 K/uL (0.0-0.7); EOSINOPHILS % (AUTO) 3.1 % (0.0-7.0); HEMATOCRIT 37.5 % (36.7-47.1); HEMOGLOBIN 12.6 g/dL (12.5-16.3); LYMPHOCYTES # (AUTO) 1.3 K/uL (20.0-40.0); LYMPHOCYTES % (AUTO) 21.9 % (20.5-51.5); MEAN CORPUSCULAR HEMOGLOBIN 30.7 uug (23.8-33.4); MEAN CORPUSCULAR HGB CONC 34 g/dL (32.5-36.3); MEAN CORPUSCULAR VOLUME 91.6 fL (73.0-96.2); MONOCYTES # (AUTO) 0.7 K/uL (2.0-10.0); MONOCYTES % (AUTO) 11.7 % (0.0-11.0); NEUTROPHILS # (AUTO) 3.8 K/uL (1.8-8.9); NEUTROPHILS % (AUTO) 62.7 % (38.5-71.5); PLATELET COUNT (AUTO) 259 K/uL (152-348); RED BLOOD CELL COUNT(AUTO) 4.09 MIL/uL (4.06-5.63); WHITE BLOOD COUNT (AUTO) 6.1 K/uL (3.6-10.2)
[2018-08-26] MEDS: INSULIN REGULAR, HUMAN 300 UNIT/3 ML VIAL SQ SCH ×3 (06:48→16:33)
[2018-08-26] MEDS: INSULIN REGULAR, HUMAN 300 UNIT/3 ML VIAL SQ PRN ×3 (06:48→16:36)
[2018-08-26 06:50] LABS: CARBON DIOXIDE 29 mmol/L (21-32); CHLORIDE 99 mmol/L (98-107); CREATININE 0.8 mg/dL (0.6-1.3); MAGNESIUM 1.7 mg/dL (1.8-2.4); PHOSPHOROUS 3.7 mg/dL (2.5-4.9); POTASSIUM 3.9 mmol/L (3.5-5.1); UREA NITROGEN, BLOOD 9 mg/dL (7-18)
[2018-08-26 07:01] LABS: GLUCOSE 360 mg/dL (74-106)
--- NOTE | 2018-08-26 07:26 | NUR ---
RECEIVED IN ROOM RESTING DENIES PAIN OR DISCOMFORTS AT THIS TIME NO S/S OF HYPERGLYCEMIC REACTIONS AT THIS TIME ON ROOM AIR WITH NO SHORTNESS OF BREATH CALL LIGHTS AND PERSONAL BELONGINGS ARE WITHIN EASY REACH MADE COMFORTABLE AND WILL CONTINUE TO OBSERVE.
[2018-08-26] MEDS: LISINOPRIL 10 MG TABLET PO SCH (08:09)
[2018-08-26] MEDS: INSULIN GLARGINE,HUM 300 UNITS/3 ML CARTRIDGE SQ SCH ×2 (08:37→22:49)
--- NOTE | 2018-08-26 11:08 | NUR ---
DR MAX HERE TO SEE PATIENT WITH DISCHARGE PLANNING FOR TOMORROW WITH HOME HEALTH PATIENT IS A NEW ONSET DIABETIC WILL REQUIRE HOME ARACELY AND TEACHING TO MANAGE INSULINS AND BLOOD SUGAR CHECKS.
[2018-08-26] MEDS ORDERED: MAGNESIUM OXIDE 400 MG TABLET PO ONE (11:15)
[2018-08-26 11:21] VITALS: BP 134/54
--- NOTE | 2018-08-26 14:04 | NUR ---
DIABETIC TEACHING REGARDING BLOOD SUGAR CHECKS INSULIN ADMINISTRATIONS AND S/S OF HYPO/HYPERGLYCEMIC REACTIONS ON GOING.
[2018-08-26 15:07] VITALS: BP 138/85
--- NOTE | 2018-08-26 18:12 | NUR ---
DIABETIC TEACHING IN PROGRESS INCLUDING SELF ADMINISTRATION OF INSULIN AND WITHDRAWAL OF THE INSULIN WITH A SYRINGE PATIENT EXPRESSED UNDERSTAND BUT REQUIRES MORE TEACHING.
--- NOTE | 2018-08-26 19:00 | NUR ---
PATIENT ALERT AWAKE, NO SOB NO CHEST PAIN NOTED. PATIENT WATCHING TV/CELL PHONE, NO COMPLAIN OF PAIN. CALL LIGHT WITHIN REACH.
[2018-08-26 20:04] VITALS: BP 141/87
[2018-08-26] MEDS: SIMVASTATIN 20 MG TABLET PO SCH (21:28)
[2018-08-26] MEDS: ENOXAPARIN SODIUM 40 MG/0.4 ML DISP.SYRIN SQ SCH (21:32)
--- NOTE | 2018-08-26 21:50 | NUR ---
PATIENT ALERT ORIENTED, DIABETIC TEACHING IN PROGRESS, SHOWS HOW TO CHECK BLOOD SUGAR, PATIENT ABLE TO FOLLOW. CONT TO MONITOR.
--- NOTE | 2018-08-26 21:51 | NUR ---
PATIENT BLOOD SUGAR 401, WE REPEAT THE BLOOD GLUCOSE TEST 440. WE DO RANDOM GLUCOSE TEST PER PROTOCOL. PATIENT ALERT ORIENTED ASYMPTOMATIC, CONT TO MONITOR.
--- NOTE | 2018-08-26 22:31 | NUR ---
PATIENT RANDOM GLUCOSE TEST 428, PATIENT BLOOD GLUCOSE TEST RESULTS WILL BE COVERED ORDERED. ENDORSED TO NURSE RN TAKING OVER THE CARE. GAVE REPORT TO RN TAKING OVER THE CARE.
[2018-08-26] MEDS: INSULIN REGULAR, HUMAN 300 UNITS/3 ML VIAL SQ PRN (22:43)
--- NOTE | 2018-08-26 23:00 | NUR ---
received patient from VERA Caban. No acute distress, comfort and safety provided. Instruction given on glucose check and insulin administration. Will continue to monitor.
[2018-08-27 06:27] VITALS: BP 120/56
[2018-08-27] MEDS: PANTOPRAZOLE SODIUM 40 MG TABLET.DR PO SCH (06:34)
[2018-08-27] MEDS: BLOOD SUGAR DIAGNOSTIC 1 EACH STRIP VI SCH ×3 (06:49→16:08)
[2018-08-27 07:37] LABS: BASOPHILS % (AUTO) 0.6 % (0.0-2.0); EOSINOPHILS # (AUTO) 0.2 K/uL (0.0-0.7); EOSINOPHILS % (AUTO) 2.6 % (0.0-7.0); HEMATOCRIT 35.5 % (36.7-47.1); HEMOGLOBIN 11.8 g/dL (12.5-16.3); LYMPHOCYTES # (AUTO) 1.7 K/uL (20.0-40.0); MEAN CORPUSCULAR HEMOGLOBIN 30.6 uug (23.8-33.4); MEAN CORPUSCULAR HGB CONC 33 g/dL (32.5-36.3); MEAN CORPUSCULAR VOLUME 92.2 fL (73.0-96.2); MONOCYTES # (AUTO) 0.9 K/uL (2.0-10.0); MONOCYTES % (AUTO) 13.9 % (0.0-11.0); NEUTROPHILS # (AUTO) 3.6 K/uL (1.8-8.9); NEUTROPHILS % (AUTO) 56.9 % (38.5-71.5); PLATELET COUNT (AUTO) 231 K/uL (152-348); RED BLOOD CELL COUNT(AUTO) 3.85 MIL/uL (4.06-5.63); WHITE BLOOD COUNT (AUTO) 6.4 K/uL (3.6-10.2)
[2018-08-27] MEDS: INSULIN REGULAR, HUMAN 300 UNIT/3 ML VIAL SQ SCH ×3 (07:44→16:10)
[2018-08-27 07:45] LABS: CARBON DIOXIDE 28 mmol/L (21-32); CHLORIDE 99 mmol/L (98-107); CREATININE 0.8 mg/dL (0.6-1.3); MAGNESIUM 1.8 mg/dL (1.8-2.4); PHOSPHOROUS 3.7 mg/dL (2.5-4.9); POTASSIUM 3.8 mmol/L (3.5-5.1); UREA NITROGEN, BLOOD 8 mg/dL (7-18)
[2018-08-27] MEDS: INSULIN REGULAR, HUMAN 300 UNIT/3 ML VIAL SQ PRN ×3 (07:45→16:12)
[2018-08-27 07:48] LABS: GLUCOSE 358 mg/dL (74-106)
--- NOTE | 2018-08-27 07:50 | NUR ---
Patient slept well at night, no pain reported. No acute distress noted, comfort and safety measures are in place, report given to VERA Sears. Instructed on Accuchecks again.
--- NOTE | 2018-08-27 08:00 | NUR ---
AWAKE ALERT AND ORIENTED AWARE OF DISCHARGE PLANNING DENIES PAIN OR DISCOMFORTS AT THIS TIME NO S/S OF HYPERGLYCEMIC REACTIONS AT THIS TIME.CONTINUE WITH DIABETIC TEACHING WILL CONTINUE TO OBSERVE.AWAITING FOR ORDERS.
[2018-08-27] MEDS: LISINOPRIL 10 MG TABLET PO SCH (08:09)
[2018-08-27] MEDS: INSULIN GLARGINE,HUM 300 UNITS/3 ML CARTRIDGE SQ SCH (08:21)
--- NOTE | 2018-08-27 10:45 | NUR ---
D/C PLANNING PATIENT SEEN AND EXAMINED BY LIMA HERNANDEZ PATIENT WILL BE DISCHARGED HOME TODAY PATIENT AWARE STATED THAT HIS FRIEND WILL PICK HIM UP LATER TODAY.
[2018-08-27 11:13] VITALS: BP 125/81
[2018-08-27] MEDS ORDERED: METF-442 PO (11:26)
--- NOTE | 2018-08-27 11:40 | NUR ---
BLOOD SUGAR AT THIS TIME IS 505 PATIENT IS SHOWING NO ADVERSE SYMPTOMS CALLED AND NOTIFIED LIMA HERNANDEZ AND SHE STATED TO JUST GO AHEAD AND GIVE HIM INSULINS ORDERED AND NO NEED FOR STAT DRAWS INSULIN GIVEN ORDERED.
[2018-08-27] MEDS ORDERED: LISI10TA5 PO (12:33)
--- NOTE | 2018-08-27 13:00 | NUR ---
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
[2018-08-27 15:17] VITALS: BP 148/96
--- NOTE | 2018-08-27 17:00 | NUR ---
BLOOD SUGAR RESULT IS 350 INSULIN GIVEN ORDERED AND PATIENT STATED STILL WAITING FOR HIS FRIEND TO COME TO PICK HIM UP THIS EVENING AFTER HIS DINNER.NO S/S OF HYPERGLYCEMIC REACTIONS AT THIS TIME.
--- NOTE | 2018-08-27 18:14 | NUR ---
PATIENT DISCHARGED ESCORTED TO THE FIRST FLOOR PICKED UP BY HIS FRIEND IN A PRIVATE CAR IN SATISFACTORY CONDITION WITH ALL HIS PERSONAL BELONGINGS.
== END 2018-08-27 18:07 | disposition home health service (06) | DRG 420 ==
LOC: ER 22:17 → CCU 08-20 00:30 → MEDSURG3 08-21 12:52
PROVIDERS: ADMIT Nurse Practitioner Acute Care; ATTEND Nurse Practitioner Acute Care
DX: E11.10 Type 2 diabetes mellitus with ketoacidosis without coma (principal); N17.0 Acute kidney failure with tubular necrosis; E66.01 Morbid (severe) obesity due to excess calories; E87.5 Hyperkalemia; D68.59 Other primary thrombophilia; E87.0 Hyperosmolality and hypernatremia; Z68.44 Body mass index [BMI] 60.0-69.9, adult; Z83.3 Family history of diabetes mellitus; Z74.09 Other reduced mobility; E78.5 Hyperlipidemia, unspecified; E78.1 Pure hyperglyceridemia; D72.829 Elevated white blood cell count, unspecified; I10 Essential (primary) hypertension; J40 Bronchitis, not specified as acute or chronic
CPT/HCPCS: 36415; 70030-TC; 71045; 83735; 84100; 84443; 85025; 85730; 86403; 87040; 87070; 87086; 93005; A4663; G0378; J1650; J1815; J2270; J3490; J7030

== ENCOUNTER 2018-09-02 16:27 | Inpatient (IN) | payer MEDICAID ==
[~2018-09-02] VITALS: Ht 175.3 cm; Wt 185.1 kg
[~2018-09-02 16:27] MED LIST: LISI10TA5 PO; METF-442 PO
[2018-09-02] MEDS ORDERED: INSULIN REGULAR, HUMAN 300 UNIT/3 ML VIAL IV ONE (17:15)
[2018-09-02] MEDS ORDERED: INSULIN REGULAR, HUMAN 300 UNIT/3 ML VIAL ONE (17:25)
[2018-09-02 17:52] LABS: BASOPHILS # (AUTO) 0.1 K/uL (0.0-8.0); BASOPHILS % (AUTO) 0.7 % (0.0-2.0); EOSINOPHILS # (AUTO) 0.1 K/uL (0.0-0.7); EOSINOPHILS % (AUTO) 0.8 % (0.0-7.0); HEMATOCRIT 37.9 % (36.7-47.1); HEMOGLOBIN 12.6 g/dL (12.5-16.3); LYMPHOCYTES # (AUTO) 2.2 K/uL (20.0-40.0); LYMPHOCYTES % (AUTO) 19.6 % (20.5-51.5); MEAN CORPUSCULAR HEMOGLOBIN 31.3 uug (23.8-33.4); MEAN CORPUSCULAR HGB CONC 33 g/dL (32.5-36.3); MEAN CORPUSCULAR VOLUME 94.3 fL (73.0-96.2); MONOCYTES % (AUTO) 9.1 % (0.0-11.0); NEUTROPHILS # (AUTO) 7.7 K/uL (1.8-8.9); NEUTROPHILS % (AUTO) 69.8 % (38.5-71.5); PLATELET COUNT (AUTO) 275 K/uL (152-348); RED BLOOD CELL COUNT(AUTO) 4.02 MIL/uL (4.06-5.63)
[2018-09-02 18:03] LABS: CREATININE 1.2 mg/dL (0.6-1.3); POTASSIUM 4.7 mmol/L (3.5-5.1)
[2018-09-02] MEDS ORDERED: IV NORMAL SALINE 1000 ML BAG IV ONE (18:30)
[2018-09-02 20:33] VITALS: BP 141/71
[2018-09-02] MEDS ORDERED: DEXTROSE 50% 50 ML DISP.SYRIN IV PRN (20:45)
[2018-09-02] MEDS ORDERED: IV 1/2NS 1000 ML 1,000 ML IV PRN (20:45)
[2018-09-02] MEDS ORDERED: ZOLPIDEM 5 MG TABLET PO PRN (20:45)
[2018-09-02] MEDS ORDERED: ACETAMINOPHEN 325 MG TABLET PO PRN (20:45)
[2018-09-02] MEDS ORDERED: HYDROCODONE/APAP 5-325MG TABLET PO PRN (20:45)
[2018-09-02] MEDS ORDERED: ONDANSETRON 4 MG/2 ML VIAL IV PRN (20:45)
[2018-09-02] MEDS ORDERED: INSULIN REGULAR, HUMAN 300 UNITS/3 ML VIAL SQ PRN (20:45)
[2018-09-02] MEDS ORDERED: DOCUSATE SODIUM 250 MG CAPSULE PO SCH (21:00)
[2018-09-02] MEDS ORDERED: ATORVASTATIN 20 MG TABLET PO SCH (21:00)
[2018-09-02] MEDS: BLOOD SUGAR DIAGNOSTIC 1 EACH STRIP VI SCH (21:39)
[2018-09-03] VITALS: BP 133/72
[2018-09-03 04:00] VITALS: BP 141/90
[2018-09-03] MEDS: BLOOD SUGAR DIAGNOSTIC 1 EACH STRIP VI SCH ×3 (06:36→17:36)
[2018-09-03] MEDS ORDERED: PANTOPRAZOLE SODIUM 40 MG TABLET.DR PO SCH (07:00)
[2018-09-03 07:31] LABS: BASOPHILS # (AUTO) 0.1 K/uL (0.0-8.0); BASOPHILS % (AUTO) 1.2 % (0.0-2.0); EOSINOPHILS # (AUTO) 0.1 K/uL (0.0-0.7); EOSINOPHILS % (AUTO) 1.5 % (0.0-7.0); HEMATOCRIT 36.3 % (36.7-47.1); LYMPHOCYTES # (AUTO) 1.8 K/uL (20.0-40.0); LYMPHOCYTES % (AUTO) 21.3 % (20.5-51.5); MEAN CORPUSCULAR HGB CONC 33 g/dL (32.5-36.3); MEAN CORPUSCULAR VOLUME 93.9 fL (73.0-96.2); MONOCYTES # (AUTO) 0.9 K/uL (2.0-10.0); MONOCYTES % (AUTO) 10.6 % (0.0-11.0); NEUTROPHILS # (AUTO) 5.5 K/uL (1.8-8.9); NEUTROPHILS % (AUTO) 65.4 % (38.5-71.5); PLATELET COUNT (AUTO) 243 K/uL (152-348); RED BLOOD CELL COUNT(AUTO) 3.87 MIL/uL (4.06-5.63); WHITE BLOOD COUNT (AUTO) 8.4 K/uL (3.6-10.2)
[2018-09-03 07:52] LABS: BILIRUBIN,TOTAL 1.5 mg/dL (0.2-1.0); CREATININE 0.9 mg/dL (0.6-1.3); MAGNESIUM 1.5 mg/dL (1.8-2.4); PHOSPHOROUS 3.9 mg/dL (2.5-4.9); POTASSIUM 4.1 mmol/L (3.5-5.1); TOTAL PROTEIN, SERUM 8.1 g/dL (6.4-8.2)
[2018-09-03] MEDS: METFORMIN HCL 500 MG TABLET PO SCH ×2 (08:40→17:26)
[2018-09-03] MEDS: glipiZIDE 10 MG TABLET PO SCH ×2 (08:41→17:26)
[2018-09-03] MEDS: INSULIN REGULAR, HUMAN 300 UNIT/3 ML VIAL SQ PRN ×3 (08:45→17:38)
[2018-09-03] MEDS ORDERED: LISINOPRIL 10 MG TABLET PO SCH (09:00)
[2018-09-03 11:04] VITALS: BP 184/82
[2018-09-03] MEDS ORDERED: LISINOPRIL 20 MG TABLET PO ONE (11:45)
[2018-09-03] MEDS: MAGNESIUM SULFATE/D5W 100 ML IV SCH ×2 (12:05→13:55)
[2018-09-03 14:40] VITALS: BP 148/58
[2018-09-03] MEDS ORDERED: DOCUSATE SODIUM 100 MG CAPSULE PO SCH (21:00)
== END 2018-09-03 18:23 | disposition home or self-care (01) | DRG 420 ==
LOC: ER 16:27 → TELE3 20:00 → MEDSURG3 09-03 17:50
PROVIDERS: ADMIT Internal Medicine
DX: E11.65 Type 2 diabetes mellitus with hyperglycemia (principal); E66.01 Morbid (severe) obesity due to excess calories; T38.3X6A Underdosing of insulin and oral hypoglycemic [antidiabetic] drugs, initial encounter; Z91.128 Patient's intentional underdosing of medication regimen for other reason; Y92.019 Unspecified place in single-family (private) house as the place of occurrence of the external cause; Z68.44 Body mass index [BMI] 60.0-69.9, adult; Z71.3 Dietary counseling and surveillance; Z79.4 Long term (current) use of insulin; I10 Essential (primary) hypertension; R00.0 Tachycardia, unspecified
CPT/HCPCS: 36415; 83735; 84100; 85025; A4663; G0378; J1815; J2405; J3475; J3490; J7030

== ENCOUNTER 2021-09-13 17:39 | Emergency (ER) | payer MEDICAID ==
[~2021-09-13] VITALS: Ht 175.3 cm; Wt 176.9 kg
[~2021-09-13 17:39] MED LIST changes: +LISI10TA29 PO; -LISI10TA5 PO
[2021-09-13] MEDS ORDERED: IBUP-1953 PO (18:02)
[2021-09-13] MEDS ORDERED: ACET-73 PO (18:02)
[2021-09-13 18:12] VITALS: BP 170/99
== END 2021-09-13 18:13 | disposition home or self-care (01) ==
LOC: ER 17:42
DX: M79.642 Pain in left hand (principal); E11.9 Type 2 diabetes mellitus without complications; Z79.84 Long term (current) use of oral hypoglycemic drugs
CPT/HCPCS: A4663

== ENCOUNTER 2022-05-01 17:51 | Emergency (ER) | payer OTHER ==
[~2022-05-01] VITALS: Ht 175.3 cm; Wt 147.4 kg
[~2022-05-01 17:51] MED LIST changes: +ACET-73 PO; +IBUP-1953 PO
[2022-05-01] MEDS ORDERED: EPINEPHRINE 1 MG/1 ML AMP ONE (19:06)
[2022-05-01] MEDS ORDERED: diphenhydrAMINE 50 MG/1 ML VIAL ONE (19:06)
[2022-05-01] MEDS ORDERED: diphenhydrAMINE 50 MG/1 ML VIAL IM ONE (19:15)
[2022-05-01] MEDS ORDERED: predniSONE 10 MG TABLET PO ONE (19:15)
[2022-05-01] MEDS ORDERED: EPINEPHRINE 1 MG/1 ML AMP SQ ONE (19:15)
[2022-05-01] MEDS ORDERED: FAMOTIDINE 20 MG TABLET PO ONE (19:15)
--- NOTE | 2022-05-01 19:29 | NUR ---
Meds given as ordered, placed on a monitor. patient is awake and alert. hand off report given to angelita
[2022-05-01] MEDS ORDERED: predniSONE 20 MG TABLET ONE (19:36)
[2022-05-01] MEDS ORDERED: FAMOTIDINE 20 MG TABLET ONE (19:36)
[2022-05-01 19:46] LABS: HEMATOCRIT 38.7 % (36.7-47.1); MEAN CORPUSCULAR HEMOGLOBIN 29.8 uug (23.8-33.4); PLATELET COUNT (AUTO) 201 K/uL (152-348)
[2022-05-01 19:58] LABS: BILIRUBIN,DIRECT 0.2 mg/dL (0.0-0.2); BILIRUBIN,TOTAL 0.7 mg/dL (0.2-1.0); CREATININE 0.9 mg/dL (0.6-1.3); POTASSIUM 3.9 mmol/L (3.5-5.1); TOTAL PROTEIN, SERUM 9.1 g/dL (6.4-8.2)
--- NOTE | 2022-05-01 20:15 | NUR ---
Patient stated he's hungry. Given a turkey sandwhich and orange juice. Patient able to swallow without difficulty
[2022-05-01] MEDS ORDERED: PRED20TA PO (21:57)
--- NOTE | 2022-05-01 23:18 | NUR ---
Patient discharged to home in stable condition. Written and verbal after care instructions given. Patient verbalizes understanding of instructions. Stressed follow up or return to ER for worsening s/s.
[2022-05-01 23:29] VITALS: BP 145/85
== END 2022-05-01 23:18 | disposition home or self-care (01) ==
LOC: ER 17:54
DX: T78.3XXA Angioneurotic edema, initial encounter (principal); E66.01 Morbid (severe) obesity due to excess calories; Z68.42 Body mass index [BMI] 45.0-49.9, adult; E11.9 Type 2 diabetes mellitus without complications; Z79.84 Long term (current) use of oral hypoglycemic drugs; Z20.822 Contact with and (suspected) exposure to COVID-19
CPT/HCPCS: 99284; 87426; 80076; 80048; 85025; 36415; 96372 ×2; J7512; J1200; J0171